=== PATIENT | female | born 1995 | race Two or more races ===

== ENCOUNTER 2023-06-30 14:15 | Emergency (ER) | payer MEDICAID, OTHER, SELFPAY ==
[2023-06-30 14:20] VITALS: BP 141/88; PULSE 85; RESP 18; TEMP 36.8; O2SAT 99
--- NOTE | 2023-06-30 14:20 | ED_ITS ---
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 Cough is non productive. Denies chest pain, palpitations, dyspnea. Sore throat worse with eating/drinking. Denies sick contacts. MD elicited complaint: cough and sore throat Onset (ago): day(s) Consistency: constant Severity: severe Able to tolerate fluids by mouth: Yes Exacerbating factors: swallowing Associated symptoms: chills, myalgias, sore throat and cough Treatments prior to arrival: none Related Data Allergies Allergy/AdvReac Type Severity Reaction Status Date / Time No Known Allergies Allergy Verified 06/30/23 14:20 Review of Systems Review of Systems: As per HPI. Yes all other systems are reviewed and are negative Constitutional: Constitutional: Reports as per HPI ON LICENSE OF [facility] Social History Social History Advance Directives: No Advance Directives Information Provided: No Physical Exam Vital Signs: Vital Signs: Last Vital Signs Temp 98.3 F 06/30/23 14:20 Pulse 85 06/30/23 14:20 Resp 18 06/30/23 14:20 BP 141/88 H 06/30/23 14:20 Pulse Ox 99 06/30/23 14:20 O2 Del Method Room Air 06/30/23 14:20 BMI result Body Mass Index 30.0 Vital signs have been reviewed and appear to be correct. Blood pressure elevated. Heart rate normal. Respiratory rate normal. Temperature normal. Oxygen saturation normal. Const: General: cooperative, healthy appearing and no acute distress Orientation/consciousness: oriented to person, oriented to place, oriented to time and patient oriented x3 Limitations: no limitations HEENT: Head: Yes normocephalic and Yes atraumatic Ears: external ears normal, TM normal on the right and EAC's normal General nose exam: Normal external nose present and Normal nasal mucous membranes and turbinates present Face and sinus: Yes face symmetric Mouth: oropharynx normal, moist mucous membranes and no trismus Throat: Yes tonsils normal, Yes uvula midline, Yes posterior oropharynx abnormal (erythema) and No uvular edema Eyes: Pupils: Equal, round and reactive pupils present Neck: Neck: Yes normal visual inspection and Yes supple Lymphatic: no lymphadenopathy noted Resp: Effort & Inspection: normal respiratory effort and able to speak in complete sentences Auscultation: clear to auscultation bilaterally Cardio: Rate: regular rate Rhythm: regular rhythm Heart sounds: S1 normal heart sound present and S2 normal heart sound present GI: Palpation (GI): Soft to palpation and nontender Auscultation: normoactive bowel sounds : General: Yes no CVA tenderness Back/Spine/Pelvis: Back: no CVA tenderness Skin: General skin exam: elasticity normal and turgor normal Neuro: General: oriented to person, oriented to place, oriented to time, patient oriented x3, moves all extremities, no focal motor deficits and CN's II- XI intact bilaterally Cranial nerves: Yes Equal, round and reactive pupils present Cognition (Neuro): normal cognition Extrem: General: Yes full ROM, Yes no pedal edema and Yes no calf tenderness Psych: Mental Status: mental status grossly normal Affect: normal affect Thought process: Normal thought process present Course Course Course Narrative: RME: 27 year-old F w/no sig PMHx presenting to the ED c/o dry cough, subjective fever, sore throat, rhinorrhea x2-3 days. denies sick contacts/travel, CP/SOB Viral testing, rapid strep ordered Full HPI, ROS and PE to be performed by primary ED provider. Medical Decision Making Medical Decision Making [facility] Narrative: Patient is a 27-year-old Indonesian speaking female presenting to the emergency department with complaint of sore throat, cough, body aches, chills for the past 4 days. On exam patient is awake, A+Ox3, VS WNL, afebrile, normal neurological exam without focal deficits, physical exam findings as above. Given reported symptoms and physical exam findings, initial differential includes viral illness, strep pharyngitis, Covid, flu, RSV. Covid swab positive, patient up dated on results. Patient is outside of treatment window for Paxlovid, etc. Advised patient to alternate Tylenol/ibuprofen as needed for fever/body aches. Instructed patient to follow-up with PCP. Return precautions discussed at bedside. Patient verbalized understanding of and agreement with plan. Differential Diagnosis Differential Diagnoses: The differential diagnosis associated with the presentation includes As per MDM. Lab Data [facility] Lab Attestation statement: I reviewed the patient's lab results. As per [facility] Labs: Lab Results 06/30/23 Range/Units 14:35 Influenza Type A (PCR) NEGATIVE (Negative) Influenza Type B (PCR) NEGATIVE (Negative) RSV RNA Qual (PCR) NEGATIVE (Negative) SARS-CoV-2 RNA (RT-PCR) POSITIVE A (Negative) S. pyogenes GrpA ARTURO Negative (Negative) External Record Review External record reviewed: Inpatient record, Office record and Outpatient record Prescription Management I considered prescription management with: Antiviral Discharge Plan Discharge Clinical Impression: COVID-19 Patient Disposition: Home, Self-Care Instructions: COVID-19 (Coronavirus Disease 2019) (ED) Additional Instructions: Usted fue evaluado hoy en el departamento de emergencias por dolor de garganta, tos y fiebre. Cassidy prueba de COVID result? positiva. Deber? continuar aisl?ndose en casa pio otros 2 d?as. Debe continuar usando la mascarilla pio 5 d?as despu?s de eso. Regrese al departamento de emergencias si la dificultad para respirar empeora, dolor en el pecho, fiebre que no mejora con Tylenol o ibuprofeno, v?mitos persistentes o cualquier otro s?ntoma preocupante. Debe realizar un seguimiento con cassidy proveedor de atenci?n primaria. Stand Alone Forms: Work/School Release Print Language: Indonesian
[2023-06-30 14:59] LABS: IDNOW Serial# 08D9AD1C; Strep A Nucleic Acid Negative (Negative)
[2023-06-30 15:34] LABS: Influenza A PCR NEGATIVE (Negative); Influenza B PCR NEGATIVE (Negative); Resp Syncy Virus RNA Qual PCR NEGATIVE (Negative); SARS COV2 PCR INHOUSE POSITIVE (Negative)
== END 2023-06-30 16:50 | disposition home or self-care (01) ==
PROVIDERS: Physician Assistant; Emergency Provider Emergency Medicine; PCP Nurse Practitioner
DX: U07.1 COVID-19 (principal); J02.9 Acute pharyngitis, unspecified; R05.9 Cough, unspecified; R68.83 Chills (without fever)
CPT/HCPCS: 0241U; 87651; 99281; 99283

== ENCOUNTER 2024-05-29 11:31 | Outpatient (REF) | payer MEDICAID, OTHER, SELFPAY ==
--- NOTE | ~2024-05-29 | US_ITS ---
EXAMINATION: US THYROID HISTORY: neck swelling TECHNIQUE: Real-time grayscale ultrasound imaging was performed and images were reviewed. COMPARISON: There are no prior studies for comparison. FINDINGS: SIZE: The right thyroid lobe measures 4.8 x 1.5 x 1.3 cm. The left thyroid lobe measures 4.0 x 1.0 x 1.5 cm. The isthmus measures 2 mm. FLOW: Flow to the gland is normal. ECHOGENICITY: The echotexture of the gland is homogeneous. NODULES: No nodules are identified. US/US thyroid IMPRESSION: Unremarkable thyroid ultrasound. ACR TI-RADS Guidelines TR1: Benign, No follow-up or biopsy required TR2: Not Suspicious, No biopsy indicated TR3: Mildly Suspicious, FNA if >= 2.5 cm, Follow if >= 1.5 cm TR4: Moderately Suspicious, FNA if >= 1.5 cm, Follow if >= 1.0 cm TR5: Highly Suspicious, FNA if >= 1.0 cm, Follow if >= 0.5 cm Electronically signed by: Berhane Calvert MD 05/29/2024 03:34 PM [facility]
== END 2024-05-29 11:32 | disposition home or self-care (01) ==
LOC: HO.US 11:31
PROVIDERS: PCP Nurse Practitioner; Visit Provider Nurse Practitioner
DX: R22.1 Localized swelling, mass and lump, neck (principal)
CPT/HCPCS: 76536

== ENCOUNTER → 2024-05-29 11:43 | Outpatient (BNV) | payer MEDICAID, SELFPAY | PROVIDERS: PCP Nurse Practitioner; Visit Provider Radiology Diagnostic Radiology | DX: R22.1 Localized swelling, mass and lump, neck (principal) | CPT/HCPCS: 76536 ==